=== PATIENT | female | born 1955 | race Caucasian/White ===

== ENCOUNTER → 2017-04-25 | Outpatient (REF) | payer BC ==
[2017-04-25 13:37] LABS: VITAMIN B12 LEVEL 1064 PG/ML (247-911)
[2017-04-25 13:40] LABS: FERRITIN 98 NG/ML (8-252)
[2017-04-25 15:18] LABS: PRETREATED FOLATE FOR RBCFOL 20.1 NG/ML
== END ==
LOC: M LAB REF 12:50
PROVIDERS: ATTEND Family Medicine
DX: Z98.84 Bariatric surgery status (principal)

== ENCOUNTER → 2017-08-28 | Outpatient (REF) | payer BC | LOC: M LAB REF 17:28 | DX: L30.9 Dermatitis, unspecified (principal) | CPT/HCPCS: 87255 ==

== ENCOUNTER → 2018-05-13 | Outpatient (REF) | payer BC ==
[2018-05-13 13:27] LABS: IRON (FE) 142 UG/DL (50-170); PERCENT SATURATION 39.2 % (13.2-45.0); TOTAL IRON BINDING CAPACITY 362 UG/DL (250-450)
[2018-05-13 13:38] LABS: TOTAL 25(OH) VITAMIN D 57.8 NG/ML (30.0-100.0); VITAMIN B12 LEVEL 709 PG/ML (247-911)
[2018-05-13 13:39] LABS: FOLATE > 24.0 NG/ML (>5.4)
== END ==
LOC: M LAB REF 12:40
PROVIDERS: ATTEND Family Medicine
DX: Z98.84 Bariatric surgery status (principal)

== ENCOUNTER 2018-09-03 09:52 | Day surgery (SDC) | payer BC, MEDICARE ==
[~2018-09-03] VITALS: Ht 160 cm; Wt 74.4 kg
[~2018-09-03 09:52] MED LIST: AMLO5TAB6 PO; AMOX875T PO; NS 1,000 ML IV ONE
[2018-09-03] MEDS ORDERED: LIDOCAINE 2% INJ 100 MG/5 ML SDV (FOR ANES.) As Ordered ONE (10:59)
[2018-09-03] MEDS ORDERED: PROPOFOL 200 MG/20 ML VIAL As Ordered ONE (10:59)
--- NOTE | 2018-09-03 12:05 | ROOR ---
Patient Name: Cayla De La Rosa Procedure Date: 09/03/2018 11:37 AM Date of : 1955 Age: 62 Room: [facility] Gender: Female Note Status: Finalized Procedure: Colonoscopy Indications: Screening for colorectal malignant neoplasm Providers: Roberto Bedoya Jr, MD Referring MD: Harjeet Zuniga MD Requesting Provider: Medicines: Propofol per Anesthesia Complications: No immediate complications. Procedure: Pre-Anesthesia Assessment: - Prior to the procedure, a History and Physical was performed, and patient medications and allergies were reviewed. The patient is competent. The risks and benefits of the procedure and the sedation options and risks were discussed with the patient. All questions were answered and informed consent was obtained. Patient identification and proposed procedure were verified by the physician and the nurse in the pre-procedure area and in the procedure room. Mental Status Examination: alert and oriented. Airway Examination: normal oropharyngeal airway and neck mobility. Respiratory Examination: clear to auscultation. CV Examination: normal. ASA Grade Assessment: II - A patient with mild systemic disease. After reviewing the risks and benefits, the patient was deemed in satisfactory condition to undergo the procedure. The anesthesia plan was to use moderate sedation / analgesia (conscious sedation). Immediately prior to administration of medications, the patient was re-assessed for adequacy to receive sedatives. The heart rate, respiratory rate, oxygen saturations, blood pressure, adequacy of pulmonary ventilation, and response to care were monitored throughout the procedure. The physical status of the patient was re-assessed after the procedure. The Colonoscope was introduced through the anus and advanced to the cecum, identified by appendiceal orifice and ileocecal valve. The colonoscopy was performed without difficulty. The patient tolerated the procedure well. The quality of the bowel preparation was adequate. Findings: The rectum, recto-sigmoid colon, sigmoid colon, descending colon, transverse colon, ascending colon, cecum, appendiceal orifice and ileocecal valve appeared normal. Impression: - The rectum, recto-sigmoid colon, sigmoid colon, descending colon, transverse colon, ascending colon, cecum, appendiceal orifice and ileocecal valve are normal. - No specimens collected. Recommendation: - Discharge patient to home (ambulatory). - Repeat colonoscopy in 10 years for screening purposes. Roberto Bedoya MD Roberto Bedoya Jr, MD 09/03/2018 12:05:16 PM Electronically signed by Roberto Bedoya Jr, MD Number of Addenda: 0 Note Initiated On: 09/03/2018 11:37 AM Estimated Blood Loss: Estimated blood loss: none.
[2018-09-03 12:23] VITALS: BP 140/63
== END 2018-09-03 12:24 | disposition home or self-care (01) ==
LOC: M OPP 09:52
PROVIDERS: ATTEND Surgery
DX: Z12.11 Encounter for screening for malignant neoplasm of colon (principal)

== ENCOUNTER → 2019-11-22 | Outpatient (REF) | payer MEDICARE ==
[~2019-11-22] MED LIST changes: +AMLO1TAB24 PO; -AMLO5TAB6 PO; -NS 1,000 ML IV ONE
== END ==
LOC: M LAB REF 11:26
PROVIDERS: ATTEND Family Medicine
DX: Z01.89 Encounter for other specified special examinations (principal)

== ENCOUNTER → 2021-02-01 | Outpatient (CLI) | payer MEDICARE ==
--- NOTE | 2021-02-01 10:34 | REP ---
INDICATION: LEFT BREAST ADD VIEWS. COMPARISON: Multiple, the latest prior 01/11/2021 which does not include DBT images. Older prior examinations from as far back as 2008 along with prior DBT images from 05/19/2018 and 05/21/2019 have been reviewed. TECHNIQUE: Digital CC and MLO views of the left breast were obtained using both 2D and 3D modalities. DBT images were obtained so they can be compared to the prior examinations with DBT imaging available. Evidently, by report the latest prior exam of 01/11/2021 was reviewed without priors for comparison. FINDINGS: The left breast is unchanged in size and shape. There are no asia soft tissue densities or spiculated masses. Scattered dense heterogenous fibroglandular elements are again seen in a stable appearing pattern but to such a degree that the sensitivity of the mammogram in detecting cancer is somewhat decreased. There is no internal architectural distortion. There are no suspicious calcifications. There is no skin thickening or nipple retraction. The Volpara volumetric breast density pattern is b. IMPRESSION: BIRADS/ACR category 1 negative mammogram. This patient's Tyrer-Cuzick lifetime breast cancer risk assessment score is 6.9%. This mammogram was interpreted with the aid of an FDA-approved computer-aided detection system. The patient states she had a clinical breast exam in over a year. The patient letter being requested is M1. RECOMMENDATION: Repeat screening mammography recommended 1 year (for women over 40). <Electronically signed by Nitish Mcgee > 02/01/21 [id number]
== END ==
LOC: M WHC 09:12
PROVIDERS: ATTEND Family Medicine
DX: R92.8 Other abnormal and inconclusive findings on diagnostic imaging of breast (principal)
CPT/HCPCS: 77065; G0279

== ENCOUNTER → 2022-02-14 | Outpatient (CLI) | payer MEDICARE | LOC: M WHC 13:34 | PROVIDERS: ATTEND Family Medicine | DX: Z12.31 Encounter for screening mammogram for malignant neoplasm of breast (principal) ==

== ENCOUNTER 2022-11-26 10:22 | Day surgery (SDC) | payer MEDICARE ==
[~2022-11-26] VITALS: Ht 157.5 cm; Wt 78.9 kg
[~2022-11-26 10:22] MED LIST changes: +CIPROFLOXACIN 0.3% OPHTH OINTMENT As Ordered ONE; +HYDR12CA PO; +LIDOCAINE 2% W/EPINEPHRINE 20ML VIAL **PRES FREE As Ordered ONE; +MULT-90 PO; +SODIUM BICARBONATE 8.4% INJ 50MEQ 50ML VIAL As Ordered ONE; +TETRACAINE 0.5% OPHTH SOLN 4ML As Ordered ONE; +VITAD400CA PO
[2022-11-26] MEDS ORDERED: fentaNYL 100 MCG/2 ML INJECTION As Ordered ONE (12:12)
[2022-11-26] MEDS ORDERED: MIDAZOLAM INJ 2MG/2ML VIAL As Ordered ONE (12:12)
[2022-11-26] MEDS ORDERED: hydrALAZINE 20MG/ML 1ML VIAL As Ordered ONE (12:36)
[2022-11-26 14:00] VITALS: BP 160/84; TEMP 98.2; O2SAT 99
== END 2022-11-26 14:14 | disposition home or self-care (01) ==
LOC: M SDC 10:22
PROVIDERS: ATTEND Ophthalmology
DX: H02.831 Dermatochalasis of right upper eyelid (principal); H02.834 Dermatochalasis of left upper eyelid; I10 Essential (primary) hypertension; E04.1 Nontoxic single thyroid nodule; Z79.899 Other long term (current) drug therapy; Z98.84 Bariatric surgery status
CPT/HCPCS: 15823; 88302; J0360; J2250; J3010

== ENCOUNTER → 2022-12-04 | Outpatient (CLI) | payer MEDICARE ==
[~2022-12-04] MED LIST changes: -CIPROFLOXACIN 0.3% OPHTH OINTMENT As Ordered ONE; -LIDOCAINE 2% W/EPINEPHRINE 20ML VIAL **PRES FREE As Ordered ONE; -SODIUM BICARBONATE 8.4% INJ 50MEQ 50ML VIAL As Ordered ONE; -TETRACAINE 0.5% OPHTH SOLN 4ML As Ordered ONE
== END ==
LOC: M RAD 10:53
PROVIDERS: ATTEND Family Medicine
DX: E04.2 Nontoxic multinodular goiter (principal)

== ENCOUNTER → 2023-11-20 | Outpatient (CLI) | payer MEDICARE | LOC: M RAD 11:13 | PROVIDERS: ATTEND Family Medicine | DX: E04.2 Nontoxic multinodular goiter (principal) ==